=== PATIENT | female | born 1975 | race Caucasian/White ===

== ENCOUNTER 2016-07-16 23:55 | Emergency (ER) | payer OTHER ==
[2016-07-17] MEDS ORDERED: NORMAL SALINE 1,000 ML IV ONE (01:19)
[2016-07-17 01:25] LABS: Urine Bilirubin Negative (NEGATIVE); Urine Blood 25 /ul (NEGATIVE); Urine Ketone Negative (NEGATIVE); Urine Nitrite Negative (NEGATIVE); Urine Protein 15 mg/dL (NEGATIVE); Urine Urobilinogen Normal (NORMAL)
[2016-07-17 01:26] LABS: Urine Amorphous Sediment Moderate - 2+ (NONE-FEW); Urine Appearance Clear; Urine Bacteria TRACE; Urine Color Yellow; Urine Mucus Moderate - 2+; Urine RBC 0-5 /hpf (0-5); Urine WBC 0-5 /hpf (0-5)
[2016-07-17 01:42] LABS: Hematocrit 32.2 % (37.0-47.0); Hemoglobin 11.2 gm/dL (12.5-16.0); Mean Cell Volume 88.7 fl (78-100); Mean Corpuscular Hemoglobin 30.9 pg (27-31); Mean Corpuscular Hgb Conc 34.8 g/dl (32-36); Mean Platelet Volume 9.9 fl (6.0-9.5); Neutrophil # 4.5 K/mm3 (1.3-6.0); Neutrophil % 85.3 % (42-75.0); Platelet Count 129 K/mm3 (150-450); Red Blood Count 3.63 M/mm3 (4.2-5.4); Red Cell Distribution Width 12.5 % (11.5-14.0); White Blood Count 5.3 K/mm3 (4.0-10.5)
[2016-07-17 01:55] LABS: Albumin * 2.8 gm/dl (3.4-5.0); Anion Gap 11.5 mmol/L (6.8-13.8); BUN/Creatinine Ratio 12.8 (9.0-21.6); Bilirubin, Total 0.4 mg/dL (0.0-1.1); Ca. Corrected For Albumin 8.9 mg/dL (8.4-10.2); Calcium * 8.3 mg/dL (7.9-10.9); Carbon Dioxide 26.4 mmol/L (24-32.6); Potassium 2.9 mmol/L (3.4-4.6); Total Protein 6.2 gm/dL (6.2-8.2)
[2016-07-17] MEDS ORDERED: POTASSIUM CHLORIDE 20 MEQ TABLET.SA PO ONE (02:36)
[2016-07-17] MEDS ORDERED: MAGNESIUM CITRATE 300 ML BTL PO ONE (02:43)
--- NOTE | 2016-07-17 02:46 | ERNOTE ---
Abdominal HPI - Narrative Date of Service: 07/17/16 - General Chief Complaint: Abdominal Pain Source: patient, family - Immun/Allergies/Home Medications Immunizatons: IMMUNIZATION HX Immunizations Up to Date Yes History of Influenza Vaccine Yes Hx Pneumococcal Vaccination No Allergies/Adverse Reactions: Allergies No Known Allergies Allergy (Unverified 07/17/16 01:02) Home Medications: HOME MEDICATIONS Amoxicillin/Potassium Clav [Augmentin 875-125 Tablet] 1 tab PO BID 07/17/16 [ Last Taken Unknown] Ethinyl Estradiol/Drospirenone [Maureen 28 Tablet] 1 each PO DAILY 07/17/16 [Last Taken Unknown] Potassium Chloride 20 meq PO BID #6 packet 07/17/16 [Last Taken Unknown] - History of Present Illness Narrative: 40 year old that has been having intermittent abdominal discomfort with hot and cold spells. Denies any N/V/D. She was seen by her physician who began treatment with Augmentin for suspected diverticulitis. Denies any constipation or vaginal discharge. Her primary reason for coming to the ED this morning was due to the hot and cold spells. Now asymptomatic. Timing: intermittent Quality: mild Activities at Onset: none Modifying Factors - (Improves): Present: other - nothing Modifying Factors - (Worsens): Present: other - nothing Associated Symptoms: Present: denies symptoms Prior Abdominal Problems: Present: similar symptoms Prior Treatment: Present: treated by physician Review of Systems - Review of Systems Constitutional: Present: fever, chills EYE: Present: no symptoms reported ENT: Present: no symptoms reported Respiratory: Present: no symptoms reported Cardiology: Present: no symptoms reported Gastrointestinal/Abdominal: Present: See HPI Genitourinary: Present: no symptoms reported Musculoskeletal: Present: no symptoms reported Skin: Present: no symptoms reported Neurological: Present: no symptoms reported Endocrine: Present: no symptoms reported Hematologic/Lymphatic: Present: no symptoms reported - Patient's Past Medical History Patient History - Medical: No pertinent hx Patient History - Cardiac/Respiratory: No pertinent hx Patient History - Cancer: No Hx of Cancer Patient History - Surgical Procedures: Patient History - Other: None LMP (females 10-50): 1 month - Social History Living Situations: home Abuse History: No History of abuse Psych History: No pertinent hx Smoking Status: Never smoker Have you smoked in the past 12 months: No Do you dip or chew tobacco: No Alcohol Use: occasionally Drug Use: none - Immunizations Immunizations Up to Date: Yes Hx Pneumococcal Vaccination: No History of Influenza Vaccine: Yes Physical Exam - Physical Exam General Appearance: Present: no apparent distress Eye Exam: Normal inspection: bilateral, PERRL: bilateral Ears, Nose, Throat: Present: normal ENT inspection Neck: Present: normal inspection Respiratory: Present: no respiratory distress Cardiovascular/Chest: Present: regular rate, rhythm Gastrointestinal/Abdominal: Present: nontender Back Exam: Present: normal inspection Extremity Exam: Present: normal inspection Neurological Exam: Present: alert, oriented, normal mood/affect Skin Exam: Present: normal color, warm/dry Lymphatic Exam: Present: no adenopathy ED Progress - Results and Orders Patient's Lab Results:: I have reviewed the patient's lab results. - Vital Signs Patient's Vital Signs:: I have reviewed the patient's vital signs. Vital Signs: Vital Signs 07/16/16 07/17/16 07/17/16 23:56 01:14 01:16 Temperature 38.9 C H Pulse Rate 150 H 140 H 131 H Respiratory 18 20 Rate Blood Pressure 100/61 115/66 O2 Sat by Pulse 94 97 Oximetry - CT/Ultrasound CT/Ultrasound Narrative: 1.6 cm complex cystic lesion at the lower pole of the left kidney. 1.2 cm dominant follicle right ovary. - Progress/Reassessment Chief Complaint: Abdominal Pain Progress:: Improved Progress Note-Subjective: 07/17/16 02:42 Feeling better since betting fluids. Departure - Departure Clinical Impression: Hypokalemia, Fever Disposition: Home self-care Condition: Good Instructions: Hypokalemia Print Language: Kuwaiti Additional Instructions: You should have your electrolytes checked next week. Return to the ED as needed. Referrals: Gifty Mohr MD [Primary Care Provider] - Prescriptions: Potassium Chloride 20 meq PO BID #6 packet
[2016-07-17] MEDS ORDERED: DEXAMETHASONE SOD PHOSPHATE 10 MG/ML VIAL IM ONE (02:48)
[2016-07-17] MEDS ORDERED: DIATRIZOATE MEGLU/DIATRIZO SOD 30 ML BTL PO ONE (02:59)
[2016-07-17] MEDS ORDERED: DIATRIZOATE MEGLU/DIATRIZO SOD 30 ML BTL ONE (03:04)
[2016-07-17] MEDS ORDERED: POTASSIUM CHLORIDE 20 MEQ TABLET.SA ONE (03:10)
[2016-07-17] MEDS ORDERED: MAGNESIUM CITRATE 300 ML BTL ONE (04:22)
--- OUTSIDE RECORDS SUMMARY | 2016-07-17 04:24 | XMS REPORT | Continuity of Care Document ---
:1975 Author Organization [employer] [place] [address] Care Team Providers Name Role Phone Unavailable Primary Care Provider Unavailable Source Comments This disclosure is being made pursuant to the [employer] program and maynot contain all information available regarding this patient.[employer] Active Allergies and Adverse Reactions Not on File Current Medications Be aware that medications may not be up to date as of this document. Alwaysverify current medications with the patient. Not on file Active Problems Not on file Social History Tobacco Use Types Packs/Day Years Used Date Never Assessed Last Filed Vital Signs Vital Sign Reading Time Taken Blood Pressure 105/75 01/13/2011 2:25 PM CDT Pulse 90 01/13/2011 2:25 PM CDT Temperature - - Respiratory Rate - - Height 1.651 m (5' 5") 01/13/2011 2:21 PM CDT Weight 58.514 kg (129 lb) 01/13/2011 2:21 PM CDT Body Mass Index 21.47 01/13/2011 2:21 PM CDT Oxygen Saturation - - Plan of Care Health Maintenance Due Date Last Done Comments Retired-Pertussis Vaccine Adult 10/20/1995 Retired-Tetanus Vaccine Adult 10/20/1995 Pap Smear 1997 Retired-INFLUENZA VACCINE 12/03/2014 Results from Last 3 Months Not on file
--- OUTSIDE RECORDS SUMMARY | 2016-07-17 04:24 | XMS REPORT | Continuity of Care Document ---
:1975 Demographics Phone Unavailable Preferred Language Unknown Marital Status Unknown Christian Affiliation Unknown Race Unknown Ethnic Group Unknown Author Organization [facility] ([facility]) [place] [address] Phone [phone] Care Team Providers Name Role Phone Unavailable Primary Care Provider Unavailable Source Comments This disclosure is being made pursuant to the Care Everywhere program, applicable federal and state laws, and may not contain all informaitonavailable regarding this patient.[facility] ([facility]) Active Allergies and Adverse Reactions Not on File Current Medications Not on file Active Problems Not on file Social History Tobacco Use Types Packs/Day Years Used Date Never Assessed Plan of Care Health Maintenance Due Date Last Done Comments Hepatitis B Vaccine (1 of 3 - Primary Series) 1975 Tdap Vaccine 10/20/1987 Lipid Disorder Screening 1994 MMR Vaccine 1994 Td Vaccine 1994 Cervical Cancer Screening 2006 Influenza Vaccine: Seasonal (#1) 11/03/2015 Results from Last 3 Months Not on file
[2016-07-17 04:33] VITALS: BP 109/58
== END 2016-07-17 04:31 | disposition home or self-care (01) ==
LOC: ER 23:55
DX: E87.6 Hypokalemia (principal); R50.9 Fever, unspecified